=== PATIENT | female | born 1960 | race Caucasian/White ===

== ENCOUNTER → 2021-07-05 | Outpatient (CLI) | payer OTHER ==
[~2021-07-05] MED LIST: PHENERGAN 25 MG25 M1 PO; PHENERGAN 25 MG25 MG PR
== END ==
LOC: EMI 12:56
DX: G43.709 Chronic migraine without aura, not intractable, without status migrainosus (principal); R68.89 Other general symptoms and signs; I67.83 Posterior reversible encephalopathy syndrome; Z86.69 Personal history of other diseases of the nervous system and sense organs
CPT/HCPCS: 70551